=== PATIENT | male | born 1965 | race Two or more races ===

== ENCOUNTER 2024-09-17 10:01 | Emergency (ER) | payer MEDICAID, SELFPAY ==
[2024-09-17 10:02] VITALS: BP 139/71; PULSE 109; RESP 15; TEMP 36.9; O2SAT 99
--- NOTE | 2024-09-17 10:13 | PD.EDLOWEX ---
Lower Extremity Injury RME/HPI General Stated Complaint: RIGHT KNEE PAIN POST ALL YESTERDAY Time Seen by Provider: 09/17/24 10:06 Arrival date/time: 09/17/24 10:01 RME / HPI RME / HPI Narrative: DR. AGUIRRE MAIN ED EVALUATION: 59 y/o male with Hx of Anemia and Edema BIBA from home presents to ED c/o right knee pain and swelling s/p fall yesterday. Patient was outside walking on uneven terrain when his leg twisted and he fell. Pain is a 9/10. Per EMS, patient was able to walk and get on the gurney with their assistance, but noted that he did not bear weight on the right leg. No other concerns or complaints expressed at this time. Related Data Home Medications ?Medication ?Instructions ?Recorded ?Confirmed acetaminophen 500 mg tablet 500 mg PO Q6H PRN Pain 10/16/19 10/16/19 allopurinol 100 mg tablet 100 mg PO QDAY 10/16/19 10/16/19 amlodipine 5 mg tablet 5 mg PO QDAY 10/16/19 10/16/19 atorvastatin 20 mg tablet 20 mg PO HS 10/16/19 10/16/19 cholecalciferol (vitamin D3) 50 50 mcg PO QDAY 10/16/19 10/16/19 mcg (2,000 unit) capsule (Vitamin D3) doxazosin 4 mg tablet 4 mg PO HS 10/16/19 10/16/19 ferrous sulfate 325 mg (65 mg 325 mg PO BID 10/16/19 10/16/19 iron) tablet furosemide 20 mg tablet 20 mg PO QDAY 10/16/19 10/16/19 Held on 10/18/19. Instructions: Resume on 10/25/19. insulin aspart U-100 100 unit/mL See Protocol subcut TID 10/16/19 10/16/19 (3 mL) subcutaneous pen (Novolog FlexPen U-100 Insulin aspart) insulin glargine 100 unit/mL (3 7 unit subcut HS 10/16/19 10/16/19 mL) subcutaneous pen (Basaglar KwikPen U-100 Insulin) lisinopril 2.5 mg tablet 2.5 mg PO QDAY 10/16/19 10/16/19 Held on 10/18/19. Instructions: Resume on 10/25/19. loperamide 2 mg capsule 2 mg PO Q6H PRN Diarrhea 10/16/19 10/16/19 loratadine 10 mg tablet 10 mg PO QDAY 10/16/19 10/16/19 ondansetron HCl 4 mg tablet 4 mg PO Q6H PRN Nausea 10/16/19 10/16/19 promethazine 6.25 mg/5 mL oral 6.25 mg PO Q6H PRN Cough 10/16/19 10/16/19 syrup Previous Rx's ?Medication ?Instructions ?Recorded albuterol sulfate 90 mcg/actuation 2 puff INH Q4H PRN shortness of 10/18/19 aerosol inhaler (Ventolin HFA) breath or wheezing #6.7 grams cefpodoxime 200 mg tablet 200 mg PO QDAY #5 tabs 10/18/19 Allergies Allergy/AdvReac Type Severity Reaction Status Date / Time No Known Allergies Allergy Unverified 09/17/24 10:27 Review of Systems Review of Systems Systems Reviewed: All systems reviewed, normal except as documented Narrative Review of Systems: Gen: No fever, no chills, no weight loss EYES: No discharge, no visual changes, no pain HEENT: No ear pain, no congestion, no sore throat PULM: No shortness of breath, no cough, no congestion CV: No chest pain, no dyspnea on exertion, no palpitations GI: No nausea, no vomiting, no diarrhea, no pain, no constipation : No frequency, no urgency, no dysuria Musc/skel: Positive right knee pain and swelling Skin: No rash Psyc: No hallucinations, no depression Heme/Lymph: No easy bleeding or bruising tendencies Neuro: No weakness, no headache Past Medical History Past Medical History CARDIAC: Positive Cardiac Disorders, Hypercholesterolemia, Edema (2 yrs ago) and Hypertension GENITOURINARY: Positive Genitourinary Disorders and Renal Disease ENT: Positive Blind (right eye) ENDOCRINE: Positive Endocrine Disorders and Diabetes Mellitus Type 2 HEMATOLOGIC: Positive Blood Disorders and Anemia OTHER HISTORY: Positive Chicken Pox Surgical History SURGICAL: Positive 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 HEENT: NC, AT. MMM. EOMI, clear conjunctiva, oropharynx clear. NECK: Supple without lymphadenopathy. No stiffness or restricted ROM. HEART: Normal rate and regular rhythm, normal S1/S1, no m/r/g LUNGS: CTAB, moving air well. No crackles or wheezes are heard. ABDOMEN: Soft, nontender, nondistended with good bowel sounds heard. BACK: No midline C/T/L spine pain or deformity, No CVAT, no obvious deformity. EXTREMITIES: Without cyanosis, clubbing or edema. MUSCULOSKELETAL: Moderate right suprapatellar fullenss and tenderness. Limited ROM secondary to pain, but able to extend. When patient was asked to wrap his leg over the gurney, patient was able to extend the right leg and hold the right knee in extension against gravity. NEUROLOGICAL: Grossly nonfocal. Alert and oriented, moving all 4 extremities. CN not formally tested but appear grossly intact. Observed to ambulate with normal gait. Skin: Warm and dry without any rash. Course Quality Measures none Orders Category Date Time Status Crutches .NOW Care 09/17/24 11:54 Active denise wrap [Splint / Immobilizer] STAT Care 09/17/24 11:54 Active XR knee RT 3V Stat Exams 09/17/24 10:12 Completed HYDROcodone*/APAP 5/325 [[place] 5/325] Med 09/17/24 10:12 Discontinued 1 tab PO X1 ONE Vital Signs Vital signs: Vital Signs Temperature 98.5 F 09/17/24 10:02 Pulse Rate 109 H 09/17/24 10:02 Respiratory Rate 15 09/17/24 10:02 Blood Pressure 139/71 H 09/17/24 10:02 Pulse Oximetry (%) 99 09/17/24 10:02 Oxygen Delivery Method Room Air 09/17/24 10:02 Extremity Injury, Lower MDM Narrative MDM Narrative:: Scribe Attestation: Debby Cabral, am scribing for and in the presence of Dr. Aguirre. Provider Notation: Although this document has been carefully reviewed, there may still be some phonetic and other typographical errors.? These errors are purely grammatical due to imperfections in the software program and should not be construed in any way to? compromise the substance of the patient's medical care during this visit. Patient data External records reviewed:: [facility] previous records (No recent ED records available for review.) and EMS form Clinical information provided by:: patient and EMS Social determinants that could affect healthcare access:: none Patient has the following chronic illnesses:: Hypercholesterolemia, Edema, Hypertension, Renal Disease, Diabetes Mellitus Type 2, Anemia How is presenting disease/condition affected by chronic disease/condition?: exacerbated by Evaluation data The following diagnostics were reviewed and interpreted by me:: radiology exam(s) Lab and/or radiology exams considered but not ordered:: None Interpretation Summary: RADIOLOGY Right Knee 3v X-Ray Right knee x-ray, 3V, indication: knee pain, my interpretation: No acute fracture or dislocation noted, moderate peripatellar joint effusion, and moderate calcification of the popliteal artery. Patient: LEIGH CALZADA Record#: [id number] Birthdate: 1965 Age/Sex: 59 / M Location: [facility] Attending Dr: Ordering Physician: Van Aguirre MD Date of Service: 09/17/24 Procedure(s): XR knee RT 3V Accession Number(s): [id number] cc: Van Aguirre MD; Aaron De Leon MD; Jak Edwards MD~ Examination: Knee, right , 3 views Technique: Knee AP, lateral, oblique 3 views Date and time of exam: September 17, 2024, 10:33 AM Indications: Twisting injury to the knee yesterday, knee pain Findings: Severe osteopenia No acute fracture Large knee effusion Impression: No acute fracture Large knee effusion, seen with internal derangement of the knee Dictated By: Aaron De Leon MD Signed By: <Electronically signed by Aaron De Leon MD in OV> 09/17/24 1142 Medications / Prescriptions Medications or Prescriptions considered but not ordered:: None Medication administrations:: Medication Administration History Discontinued Medications Hydrocodone Bitart/Acetaminophen (Hydrocodone/Apap 5/325 Tablet) 1 tab PO X1 ONE Stop: 09/17/24 10:13 Last Admin: 09/17/24 11:07 Dose: 1 tab Documented By: FC See above if any Consultations Consultation(s) initiated? (list below): No Diagnosis Extremity Injury, Lower Differential Diagnosis: acute internal derangement of knee (knee pain, strain, contusion, abrasion) Most likely diagnosis given after review of the tests above:: Knee sprain, Effusion of right knee joint Admission Indicated Admission indicated?: not indicated Explain why admission is indicated or not indicated:: Patient has no emergent abnormalities in their studies and can be managed on an outpatient basis. Admission Request Was there a request for admission?: No Disposition Plan Disposition Plan: Discharge Discharge Attestation Discharge Attestation: The patient and all family members were given an opportunity to ask questions and understood the discharge instructions. Discharge instructions specifically effects, indications for sooner follow up or return to the emergency department, and the expected course of current diagnosis. Patient condition: Stable Discharge Plan Plan Patient Disposition: HOME (Self Care) Prescriptions/Referrals Prescriptions/Med Rec: No Action atorvastatin 20 mg Tablet 20 mg PO HS loperamide 2 mg Capsule 2 mg PO Q6H PRN (Reason: Diarrhea) promethazine 6.25 mg/5 mL Syrup 6.25 mg PO Q6H PRN (Reason: Cough) Rx Instructions: for 7 days ondansetron HCl 4 mg Tablet 4 mg PO Q6H PRN (Reason: Nausea) amlodipine 5 mg Tablet 5 mg PO QDAY allopurinol 100 mg Tablet 100 mg PO QDAY acetaminophen 500 mg Tablet 500 mg PO Q6H PRN (Reason: Pain) Rx Instructions: take for 10 days ferrous sulfate 325 mg (65 mg iron) Tablet 325 mg PO BID doxazosin 4 mg Tablet 4 mg PO HS furosemide 20 mg Tablet 20 mg PO QDAY lisinopril 2.5 mg Tablet 2.5 mg PO QDAY loratadine 10 mg Tablet 10 mg PO QDAY insulin aspart U-100 [Novolog FlexPen U-100 Insulin] 100 unit/mL (3 mL) Insulin Pen See Protocol SUBCUT TID Protocol: Insulin Corrective High-Dose Regimen Basaglar KwikPen U-100 Insulin 100 unit/mL (3 mL) Insulin Pen 7 unit SUBCUT HS cholecalciferol (vitamin D3) [Vitamin D3] 50 mcg (2,000 unit) Capsule 50 mcg PO QDAY albuterol sulfate [Ventolin HFA] 90 mcg/actuation Hfa Aerosol Inhaler 2 puff INH Q4H PRN (Reason: shortness of breath or wheezing) Qty: 6.7 0RF cefpodoxime 200 mg tablet 200 mg PO QDAY Qty: 5 0RF Rx Instructions: Please take with food. Renally dosed. Croatian label. Referrals: Jak Edwards MD [Primary Care Provider] - In 1 week Problem List Clinical Impression: Knee sprain, Effusion of knee joint right Patient/Caregiver Discharge Instructions Education Materials: ED DENISE Wrap, ED Knee Effusion, ED Knee Sprain Additional Instructions: Acuda a roberts m?dico de cabecera en 2 o 3 d?as para andres nueva revisi?n. Puede regresar a urgencias antes si los s?ntomas empeoran o si nota alg?n problema nuevo o preocupante. Print Language: Croatian Stand Alone Forms: Jayshree Award Info., Patient Portal Info Letter
[2024-09-17 10:24] VITALS: PULSE 74; RESP 18; O2SAT 97
[2024-09-17] MEDS: HYDROcodone/APAP 5/325 TABLET 1 TAB PO (11:07)
[2024-09-17 12:22] VITALS: BP 149/69; PULSE 98; RESP 18; TEMP 36.9; O2SAT 100
== END 2024-09-17 12:41 | disposition home or self-care (01) ==
PROVIDERS: Emergency Provider Emergency Medicine; PCP Family Medicine
DX: S83.91XA Sprain of unspecified site of right knee, initial encounter (principal); X50.1XXA Overexertion from prolonged static or awkward postures, initial encounter
CPT/HCPCS: 73562; 99283; A9270

== ENCOUNTER → 2024-10-31 | Outpatient (CLI) | payer OTHER, MEDICAID, SELFPAY ==
--- NOTE | 2024-10-31 12:30 | XR_ITS ---
Examination: Arterial duplex lower extremity unilateral right Date and time of exam: October 31, 2024 1233 hours INDICATIONS: Right lower leg redness swelling and pain this week Findings: Duplex sonographic imaging of the lower extremity arteries using B-mode/Pringle scale imaging and Doppler spectral analysis and color flow. Ankle brachial indices have been recorded. Right common femoral artery demonstrates triphasic flow. Right superficial femoral artery demonstrates triphasic flow. Right popliteal artery demonstrates triphasic flow. Right posterior tibial artery demonstrated monophasic flow. Right ankle/brachial index is 1. Impression: Suspicious for trifurcation arterial disease involving the arteries below the knee, consider correlation with CTA abdominal aorta iliofemoral runoff post intravenous contrast, as clinically warranted
== END | disposition home or self-care (01) ==
LOC: CDIM 12:32
PROVIDERS: PCP Family Medicine
DX: I99.8 Other disorder of circulatory system (principal)
CPT/HCPCS: 93926

== ENCOUNTER → 2024-11-19 | Outpatient (CLI) | payer OTHER, MEDICAID, SELFPAY ==
--- NOTE | 2024-11-19 13:00 | XR_ITS ---
Exam: MRI knee without contrast, right Date and time of exam: November 19 70,025, 1413 hours INDICATIONS: Patient fell September 2024 with injury to the knee, followed by anterior knee pain Technique: Multiple axial, coronal, and sagittal sections on the knee have been obtained. T2-Weighted sagittal, fat-suppressed images, TR 3,500, TE 62, T2 weighted coronal fat-saturated images, TR 3,500, TE 62 Proton density sagittal sections, TR 1800, TE 31. T-1 weighted coronal images, TR 524, TE 13.0 Findings: Medial meniscus anterior horn is intact. Medial meniscus, body intact. Posterior horn medial meniscus multiple peripheral horizontal linear tears. Lateral meniscus anterior horn horizontal linear tear Lateral meniscus, body horizontal linear tear, truncation inner margin Posterior horn lateral meniscus multiple horizontal linear tears Anterior cruciate ligament high-grade sprain Posterior cruciate ligament appears intact. Knee effusion is moderate. Quadriceps and patellar tendons appear intact. There is no evidence of tendinosis. Inflammatory change or fracture of Hoffa's fat pad is not seen. Medial patellar facet demonstrates moderate thinning. Lateral patellar facet cartilage demonstrates moderate thinning. Trochlear cartilage demonstrates moderate thinning. Marrow signal increased at the fibular neck consistent with fibular neck fracture. Medial collateral ligament appears intact. No meniscocapsular separation is seen. Illiotibial band and fibular collateral ligament are intact. Biceps femoris tendons appear intact. Medial femoral condylar articular cartilage demonstrates moderate thinning. Lateral femoral condylar articular cartilage demonstratesmoderate thinning. Tibial plateau cartilage demonstrates moderate thinning. Impression: Medial and lateral meniscus tears. High-grade sprain anterior cruciate ligament. Recommend repeat plain films of the knee to exclude fracture of the fibular neck
== END | disposition home or self-care (01) ==
LOC: SMRI 12:40
PROVIDERS: PCP Family Medicine
DX: S83.281A Other tear of lateral meniscus, current injury, right knee, initial encounter (principal); S83.241A Other tear of medial meniscus, current injury, right knee, initial encounter; S83.511A Sprain of anterior cruciate ligament of right knee, initial encounter; W19.XXXA Unspecified fall, initial encounter
CPT/HCPCS: 73721

== ENCOUNTER → 2025-02-24 | Outpatient (CLI) | payer OTHER, MEDICAID, SELFPAY ==
--- NOTE | 2025-02-24 12:40 | XR_ITS ---
Examination: Bone densitometry Date and time of exam: February 24, 2025, 1312 hours INDICATIONS: 60-year-old male with diagnosis age-related osteoporosis, diabetic Technique: Lumbar spine and hip total bone mineralization values of an calculated. Peak reference and age match control results have been displayed. Findings: Lumbar spine total bone mineralization is 0.889 gm/cm2. This is 1.8 standard deviations below peak reference. This is 1.2 standard deviations above age-matched controls. Hip total bone mineralization is 0.644 gm/cm2 This is 3.1 standard deviations below peak reference. This is 2.7 standard deviations below age-matched controls Impression: There is osteopenia based on lumbar spine measurements. There is osteoporosis based on hip measurements
== END | disposition home or self-care (01) ==
DX: M85.88 Other specified disorders of bone density and structure, other site (principal); M81.0 Age-related osteoporosis without current pathological fracture; Z71.82 Exercise counseling
CPT/HCPCS: 77080